=== PATIENT | female | born 1940 | race Caucasian/White ===

== ENCOUNTER 2017-07-05 12:16 | Inpatient (IN) | payer MEDICARE, OTHER ==
[2017-07-05 13:51] LABS: AADO2 Arterial 40.1 mmHg (7.0-24.0); Allen Test ACCEPTAB; Arterial Base Excess -0.1 mmol/L (-3.0-3); Arterial Blood Gas Oxygen Sat 94.3 mmHG (95.0-100.0); Arterial COHb 0.6 % (0.0-3.0); Arterial Fraction of Oxyhgb 93.5 % (93.0-99.0); Arterial HCO3 23.3 mmol/L (22.0-26.0); Arterial MetHb 0.2 % (0.0-1.5); Arterial Total Hemglobin 14.2 g/dl (12.0-18.0); Arterial pCO2 34.5 mmhg (35-45); MODE ROOM AIR; Site Right Radial
[2017-07-05 14:02] LABS: ADD MAN DIFF? NO
[2017-07-05 14:05] LABS: WHITE BLOOD COUNT 17.2 10^3/ul (4.8-10.8)
[2017-07-05 14:05] LABS: ABNORMAL IP MESSAGE 1; BASOPHIL # 0.1 10^3/ul (0.0-0.1); BASOPHILS % 0.3 % (0.0-2.0); EOSINOPHILS # 0.1 10^3/ul (0.0-0.5); EOSINOPHILS % 0.3 % (0.0-7.0); HEMATOCRIT 40.6 % (37.0-47.0); HEMOGLOBIN 13.7 g/dl (12.0-16.0); LYMPHOCYTES # 3.9 10^3/ul (0.8-2.9); LYMPHOCYTES % 22.3 % (15.0-51.0); MEAN CORPUSCULAR HEMOGLOBIN 30.5 pg (29.0-33.0); MEAN CORPUSCULAR HGB CONC 33.7 g/dl (32.0-37.0); MEAN CORPUSCULAR VOLUME 90.4 fl (82.0-101.0); MEAN PLATELET VOLUME 13.3 fl (7.4-10.4); MONOCYTE # 0.6 10^3/ul (0.3-0.9); MONOCYTES % 3.4 % (0.0-11.0); NEUTROPHIL # 12.6 10^3/ul (1.6-7.5); NEUTROPHILS % 73.3 % (39.0-77.0); PLATELET COUNT 174 10^3/UL (140-415); RED BLOOD COUNT 4.49 10^6/ul (4.20-5.40); RED CELL DISTRIBUTION WIDTH 14.3 % (11.5-14.5)
[2017-07-05 14:10] LABS: POSITIVE DIFF @See below
[2017-07-05 14:16] LABS: LACTIC ACID 1.8 mmol/L (0.5-2.0)
[2017-07-05 14:19] LABS: ALANINE AMINOTRANSFERASE 30 IU/L (13-69); ALBUMIN 3.8 g/dl (3.3-4.9); ALBUMIN/GLOBULIN RATIO 0.82; ALKALINE PHOSPHATASE 113 IU/L (42-121); ANION GAP 16 (8-16); ASPARTATE AMINO TRANSFERASE 35 IU/L (15-46); BILIRUBIN,INDIRECT 0.3 mg/dl (0-1.1); BILIRUBIN,TOTAL 0.3 mg/dl (0.2-1.3); BLOOD UREA NITROGEN 20 mg/dl (7-20); CALCIUM 8.7 mg/dl (8.4-10.2); CARBON DIOXIDE 24 mmol/L (21-31); CHLORIDE 95 mmol/L (97-110); CREATININE 0.87 mg/dl (0.44-1.00); MAGNESIUM 1.9 mg/dl (1.7-2.5); PHOSPHORUS 4.3 mg/dl (2.5-4.9); POTASSIUM 4.8 mmol/L (3.5-5.1); SODIUM 130 mmol/L (135-144); TOTAL PROTEIN 8.4 g/dl (6.1-8.1)
[2017-07-05 14:20] LABS: INR 0.93; PROTIME 12.6 Sec (11.9-14.9)
[2017-07-05 14:21] LABS: PARTIAL THROMBOPLASTIN TIME 26.7 Sec (25.0-35.0)
[2017-07-05 14:25] LABS: GLUCOSE 547 mg/dl (70-220)
[2017-07-05 14:30] LABS: TROPONIN-I < 0.012 ng/ml (0.000-0.120)
[2017-07-05] MEDS ORDERED: INSULIN LISPRO 100 UNIT/ML VIAL SC (15:00)
[2017-07-05] MEDS: SOD CHLORIDE 0.9% 1,000 ML IV ×2 (15:07→17:53)
[2017-07-05 16:24] LABS: URINE BLOOD (Dip) POC Negative (NEGATIVE); URINE KETONES (Dip) POC Negative (NEGATIVE); URINE LEUKOCYTE EST (Dip) POC Negative (NEGATIVE); URINE NITRITE (Dip) POC Negative (NEGATIVE); URINE TOTAL PROTEIN POC Negative (NEGATIVE)
[2017-07-05 16:57] LABS: ADD UMIC NO; UR ASCORBIC ACID NEGATIVE (NEGATIVE); UR BILIRUBIN (Dip) NEGATIVE (NEGATIVE); UR BLOOD (Dip) NEGATIVE (NEGATIVE); UR CLARITY CLEAR (CLEAR); UR COLOR COLORLESS (YELLOW); UR GLUCOSE (Dip) 3+ mg/dL (NEGATIVE); UR KETONES (Dip) NEGATIVE (NEGATIVE); UR LEUKOCYTE ESTERASE (Dip) NEGATIVE Leu/ul (NEGATIVE); UR NITRITE (Dip) NEGATIVE (NEGATIVE); UR SPECIFIC GRAVITY (Dip) 1.012 (1.003-1.030); UR TOTAL PROTEIN (Dip) NEGATIVE (NEGATIVE); UR UROBILINOGEN (Dip) NEGATIVE (NEGATIVE)
[2017-07-05 17:28] LABS: LACTIC ACID 3.3 mmol/L (0.5-2.0)
[2017-07-05] MEDS: LEVOFLOXACIN 750MG/D5W (PMX) 150 ML IVPB (17:32)
[2017-07-05] MEDS ORDERED: ALBUTEROL/IPRATROPIUM (NEB) 3 ML AMP HHN (18:00)
[2017-07-05] MEDS ORDERED: GLUCAGON 1 MG INJ IM (18:00)
[2017-07-05] MEDS ORDERED: NACL 0.9% 3 ML SYG IV (18:00)
[2017-07-05] MEDS ORDERED: GLUCOSE GEL 15 GRAM TUBE BUCCAL (18:00)
[2017-07-05] MEDS ORDERED: GLUCOSE GEL 15 GRAM TUBE PO ×2 (18:00)
[2017-07-05] MEDS ORDERED: HYDROmorphONE 0.5 MG/0.5 ML SYG IV (18:00)
[2017-07-05] MEDS ORDERED: HYDROCODONE/APAP (5/325) TAB PO (18:00)
[2017-07-05] MEDS ORDERED: ONDANSETRON 4 MG INJ IV (18:00)
[2017-07-05] MEDS ORDERED: NITROGLYCERIN (SL) 0.4 MG TAB SL (18:00)
[2017-07-05] MEDS ORDERED: MAGNESIUM HYDROXIDE 30ML CUP PO (18:00)
[2017-07-05] MEDS ORDERED: NA PHOSPHATE/BIPHOS 133 ML ENEMA PR (18:00)
[2017-07-05] MEDS ORDERED: DEXTROSE 50% 50 ML SYRINGE IV ×2 (18:00)
[2017-07-05] MEDS ORDERED: LORAZEPAM 2 MG INJ IV (18:00)
[2017-07-05] MEDS: VANCOMYCIN 1 GM (PMX) 250 ML IVPB (19:56)
[2017-07-05] MEDS: INSULIN ASPART [NOVOLOG] 3 ML PEN SC (21:16)
[2017-07-05] MEDS: HEPARIN 5,000 UNIT/0.5 ML VIAL SC (21:50)
[2017-07-05] MEDS: PIPER-TAZO 3.375 GM IV (PMX) 100 ML IVPB (22:29)
[2017-07-06] MEDS: INSULIN ASPART [NOVOLOG] 3 ML PEN SC ×6 (01:00→18:19)
[2017-07-06] MEDS ORDERED: ACCU-CHEK XX (02:00)
[2017-07-06] MEDS: SOD CHLORIDE 0.9% 1,000 ML IV ×2 (03:33→05:12)
[2017-07-06 03:38] LABS: LACTIC ACID 0.9 mmol/L (0.5-2.0)
[2017-07-06] MEDS: PIPER-TAZO 3.375 GM IV (PMX) 100 ML IVPB ×3 (05:11→18:09)
[2017-07-06 06:15] LABS: ADD MAN DIFF? NO
[2017-07-06 06:18] LABS: LACTIC ACID 1.1 mmol/L (0.5-2.0)
[2017-07-06 06:19] LABS: ABNORMAL IP MESSAGE 1; BASOPHIL # 0.1 10^3/ul (0.0-0.1); BASOPHILS % 0.5 % (0.0-2.0); EOSINOPHILS # 0.2 10^3/ul (0.0-0.5); EOSINOPHILS % 2.2 % (0.0-7.0); HEMATOCRIT 39.7 % (37.0-47.0); LYMPHOCYTES # 4.6 10^3/ul (0.8-2.9); LYMPHOCYTES % 46.4 % (15.0-51.0); MEAN CORPUSCULAR HEMOGLOBIN 29.8 pg (29.0-33.0); MEAN CORPUSCULAR HGB CONC 32.7 g/dl (32.0-37.0); MEAN CORPUSCULAR VOLUME 91.1 fl (82.0-101.0); MEAN PLATELET VOLUME 13.5 fl (7.4-10.4); MONOCYTE # 0.6 10^3/ul (0.3-0.9); MONOCYTES % 5.7 % (0.0-11.0); NEUTROPHIL # 4.5 10^3/ul (1.6-7.5); NEUTROPHILS % 45.1 % (39.0-77.0); PLATELET COUNT 169 10^3/UL (140-415); RED BLOOD COUNT 4.36 10^6/ul (4.20-5.40); RED CELL DISTRIBUTION WIDTH 14.5 % (11.5-14.5)
[2017-07-06 06:19] LABS: WHITE BLOOD COUNT 9.9 10^3/ul (4.8-10.8)
[2017-07-06 06:35] LABS: POSITIVE DIFF @See below
[2017-07-06 06:48] LABS: CHOLESTEROL 142 mg/dl (100-200)
[2017-07-06 06:48] LABS: CHOL/HDL RATIO 3.4 RATIO; HDL CHOLESTEROL 41 mg/dl (33-92); LDL CHOLESTEROL,CALCULATED 78 mg/dl; TRIGLYCERIDES 114 mg/dl (0-149)
[2017-07-06 06:52] LABS: ANION GAP 14 (8-16); BLOOD UREA NITROGEN 14 mg/dl (7-20); CALCIUM 8.6 mg/dl (8.4-10.2); CARBON DIOXIDE 26 mmol/L (21-31); CHLORIDE 108 mmol/L (97-110); GLUCOSE 115 mg/dl (70-220); MAGNESIUM 1.9 mg/dl (1.7-2.5); PHOSPHORUS 4.4 mg/dl (2.5-4.9); POTASSIUM 4.5 mmol/L (3.5-5.1); SODIUM 143 mmol/L (135-144)
[2017-07-06] MEDS: HEPARIN 5,000 UNIT/0.5 ML VIAL SC ×2 (08:42→21:38)
[2017-07-06 13:23] LABS: LACTIC ACID 1.4 mmol/L (0.5-2.0)
[2017-07-06] MEDS: SOD CHLORIDE 0.45% 1,000 ML IV (18:10)
[2017-07-06] MEDS: INSULIN GLARGINE [LANtus] 3 ML PEN SC (18:19)
[2017-07-06] MEDS: ACETAMINOPHEN 325 MG TAB PO (18:35)
[2017-07-06] MEDS: DOCUSATE SODIUM 100 MG CAP PO (18:36)
[2017-07-06] MEDS: Insulin NOVOLOG SS MODERATE Algorithm (SS with meals and bedtime) SC (21:48)
[2017-07-07] MEDS: PIPER-TAZO 3.375 GM IV (PMX) 100 ML IVPB ×2 (00:23→05:29)
[2017-07-07] MEDS: ACCUCHECK AT 2AM (Patients on SS coverage) XX (02:11)
[2017-07-07] MEDS: SOD CHLORIDE 0.45% 1,000 ML IV ×2 (04:20→17:27)
[2017-07-07 06:07] LABS: ADD MAN DIFF? NO
[2017-07-07 06:11] LABS: ABNORMAL IP MESSAGE 1; BASOPHIL # 0.1 10^3/ul (0.0-0.1); BASOPHILS % 0.6 % (0.0-2.0); EOSINOPHILS # 0.3 10^3/ul (0.0-0.5); EOSINOPHILS % 3.5 % (0.0-7.0); HEMATOCRIT 40.5 % (37.0-47.0); HEMOGLOBIN 13.5 g/dl (12.0-16.0); LYMPHOCYTES # 4.2 10^3/ul (0.8-2.9); LYMPHOCYTES % 51.3 % (15.0-51.0); MEAN CORPUSCULAR HEMOGLOBIN 29.9 pg (29.0-33.0); MEAN CORPUSCULAR HGB CONC 33.3 g/dl (32.0-37.0); MEAN CORPUSCULAR VOLUME 89.8 fl (82.0-101.0); MEAN PLATELET VOLUME 13.2 fl (7.4-10.4); MONOCYTE # 0.7 10^3/ul (0.3-0.9); MONOCYTES % 8.1 % (0.0-11.0); NEUTROPHILS % 36.4 % (39.0-77.0); PLATELET COUNT 174 10^3/UL (140-415); RED BLOOD COUNT 4.51 10^6/ul (4.20-5.40); RED CELL DISTRIBUTION WIDTH 14.5 % (11.5-14.5)
[2017-07-07 06:11] LABS: WHITE BLOOD COUNT 8.2 10^3/ul (4.8-10.8)
[2017-07-07 06:21] LABS: POSITIVE DIFF @See below
[2017-07-07 06:32] LABS: ANION GAP 12 (8-16); BLOOD UREA NITROGEN 13 mg/dl (7-20); CALCIUM 8.7 mg/dl (8.4-10.2); CARBON DIOXIDE 24 mmol/L (21-31); CHLORIDE 110 mmol/L (97-110); CREATININE 0.85 mg/dl (0.44-1.00); GLUCOSE 155 mg/dl (70-220); POTASSIUM 3.8 mmol/L (3.5-5.1); SODIUM 142 mmol/L (135-144)
[2017-07-07] MEDS: Insulin NOVOLOG SS MODERATE Algorithm (SS with meals and bedtime) SC ×4 (07:35→21:00)
[2017-07-07] MEDS: INSULIN GLARGINE [LANtus] 3 ML PEN SC (08:42)
[2017-07-07] MEDS: HEPARIN 5,000 UNIT/0.5 ML VIAL SC ×2 (08:43→21:04)
[2017-07-07] MEDS: INSULIN ASPART [NOVOLOG] 3 ML PEN SC ×3 (08:43→17:25)
[2017-07-07] MEDS: LEVOFLOXACIN 750 MG TABLET PO (14:29)
[2017-07-07] MEDS: GUAIFENESIN/DM 5ML CUP PO (21:02)
[2017-07-07] MEDS: CARBOXYMETHYLCELLULOSE 0.5% 0.1 ML OPH BOTH EYES (21:02)
[2017-07-08] MEDS: ACCUCHECK AT 2AM (Patients on SS coverage) XX (02:00)
[2017-07-08] MEDS: hydrALAzine 20 MG INJ IV (03:45)
[2017-07-08] MEDS: SOD CHLORIDE 0.45% 1,000 ML IV (06:01)
[2017-07-08] MEDS: LEVOFLOXACIN 750 MG TABLET PO (06:01)
[2017-07-08 06:51] LABS: ADD MAN DIFF? NO; BASOPHIL # 0.1 10^3/ul (0.0-0.1); BASOPHILS % 0.6 % (0.0-2.0); EOSINOPHILS # 0.3 10^3/ul (0.0-0.5); EOSINOPHILS % 2.9 % (0.0-7.0); HEMATOCRIT 40.8 % (37.0-47.0); HEMOGLOBIN 13.4 g/dl (12.0-16.0); LYMPHOCYTES # 4.9 10^3/ul (0.8-2.9); LYMPHOCYTES % 54.7 % (15.0-51.0); MEAN CORPUSCULAR HEMOGLOBIN 29.6 pg (29.0-33.0); MEAN CORPUSCULAR HGB CONC 32.8 g/dl (32.0-37.0); MEAN CORPUSCULAR VOLUME 90.3 fl (82.0-101.0); MEAN PLATELET VOLUME 12.5 fl (7.4-10.4); MONOCYTE # 0.6 10^3/ul (0.3-0.9); NEUTROPHIL # 3.1 10^3/ul (1.6-7.5); NEUTROPHILS % 34.6 % (39.0-77.0); PLATELET COUNT 168 10^3/UL (140-415); RED BLOOD COUNT 4.52 10^6/ul (4.20-5.40); RED CELL DISTRIBUTION WIDTH 14.3 % (11.5-14.5)
[2017-07-08 07:39] LABS: ANION GAP 16 (8-16); BLOOD UREA NITROGEN 18 mg/dl (7-20); CALCIUM 8.9 mg/dl (8.4-10.2); CARBON DIOXIDE 23 mmol/L (21-31); CHLORIDE 107 mmol/L (97-110); CREATININE 0.68 mg/dl (0.44-1.00); GLUCOSE 167 mg/dl (70-220); POTASSIUM 4.1 mmol/L (3.5-5.1); SODIUM 142 mmol/L (135-144)
[2017-07-08] MEDS: CARBOXYMETHYLCELLULOSE 0.5% 0.1 ML OPH BOTH EYES ×2 (08:24→13:51)
[2017-07-08] MEDS: INSULIN GLARGINE [LANtus] 3 ML PEN SC (08:25)
[2017-07-08] MEDS: Insulin NOVOLOG SS MODERATE Algorithm (SS with meals and bedtime) SC ×3 (08:26→17:34)
[2017-07-08] MEDS: INSULIN ASPART [NOVOLOG] 3 ML PEN SC ×3 (08:26→17:33)
[2017-07-08] MEDS: HEPARIN 5,000 UNIT/0.5 ML VIAL SC (08:27)
== END 2017-07-08 17:55 | disposition home health service (06) | DRG 195 ==
LOC: MS3 17:58 → E/R 12:16 → PP2 07-07 21:40
PROVIDERS: Hospitalist
DX: J18.9 Pneumonia, unspecified organism (principal); E11.65 Type 2 diabetes mellitus with hyperglycemia; J84.10 Pulmonary fibrosis, unspecified; E78.00 Pure hypercholesterolemia, unspecified; I10 Essential (primary) hypertension
CPT/HCPCS: 36415; 36600; 71045; 71250; 80048; 80053; 80061; 81003; 82803; 82962; 83036; 83605; 83735; 84100; 84439; 84443; 84484; 85025; 85610; 85730; 87040; 87086; 92610; 93005; 93306; 96372; 96374; 96375; 97116; 97162; 97167; 97535; 99291-25

== ENCOUNTER 2018-05-31 17:25 | Inpatient (IN) | payer MEDICARE, OTHER ==
[2018-05-31] MEDS ORDERED: NITROGLYCERIN (SL) 0.4 MG TAB (18:00)
[2018-05-31] MEDS: SODIUM CHLORIDE 0.9% 1L BAG IV* ×2 (18:01→19:38)
[2018-05-31] MEDS: CEFTRIAXONE 1 GM/50 ML (PMX) 50 ML IVPB (18:01)
[2018-05-31 18:11] LABS: ADD MAN DIFF? NO
[2018-05-31] MEDS: NITROGLYCERIN (SL) 0.4 MG TAB SL (18:33)
[2018-05-31 18:35] LABS: BASOPHIL # 0.1 10^3/ul (0.0-0.1); BASOPHILS % 0.5 % (0.0-2.0); EOSINOPHILS # 0.1 10^3/ul (0.0-0.5); EOSINOPHILS % 0.6 % (0.0-7.0); HEMATOCRIT 42.8 % (37.0-47.0); HEMOGLOBIN 13.9 g/dl (12.0-16.0); LYMPHOCYTES # 3.6 10^3/ul (0.8-2.9); LYMPHOCYTES % 27.8 % (15.0-51.0); MEAN CORPUSCULAR HEMOGLOBIN 30.1 pg (29.0-33.0); MEAN CORPUSCULAR HGB CONC 32.5 g/dl (32.0-37.0); MEAN CORPUSCULAR VOLUME 92.6 fl (82.0-101.0); MEAN PLATELET VOLUME 12.3 fl (7.4-10.4); MONOCYTE # 0.9 10^3/ul (0.3-0.9); MONOCYTES % 6.9 % (0.0-11.0); NEUTROPHIL # 8.3 10^3/ul (1.6-7.5); NEUTROPHILS % 63.9 % (39.0-77.0); PLATELET COUNT 278 10^3/UL (140-415); RED BLOOD COUNT 4.62 10^6/ul (4.20-5.40); RED CELL DISTRIBUTION WIDTH 15.2 % (11.5-14.5)
[2018-05-31] MEDS: AZITHROMYCIN 500MG/NS (PMX) 250 ML IV (18:49)
[2018-05-31 18:57] LABS: ALANINE AMINOTRANSFERASE 35 IU/L (13-69); ALBUMIN 3.7 g/dl (3.3-4.9); ALBUMIN/GLOBULIN RATIO 0.82; ALKALINE PHOSPHATASE 215 IU/L (42-121); ANION GAP 13 (5-13); ASPARTATE AMINO TRANSFERASE 61 IU/L (15-46); BILIRUBIN,INDIRECT 0.4 mg/dl (0-1.1); BILIRUBIN,TOTAL 0.4 mg/dl (0.2-1.3); BLOOD UREA NITROGEN 15 mg/dl (7-20); CALCIUM 9.6 mg/dl (8.4-10.2); CARBON DIOXIDE 25 mmol/L (21-31); CHLORIDE 98 mmol/L (97-110); CREATININE 0.62 mg/dl (0.44-1.00); GLUCOSE 269 mg/dl (70-220); INR 0.98; POTASSIUM 4.3 mmol/L (3.5-5.1); PROTIME 13.1 Sec (11.9-14.9); SODIUM 136 mmol/L (135-144); TOTAL PROTEIN 8.2 g/dl (6.1-8.1)
[2018-05-31 18:58] LABS: PARTIAL THROMBOPLASTIN TIME 35.3 Sec (23.0-35.0)
[2018-05-31 19:08] LABS: TROPONIN-I < 0.012 ng/ml (0.000-0.120)
[2018-05-31 19:31] LABS: AADO2 Arterial 226.2 mmHg (7.0-24.0); Allen Test ACCEPTAB; Arterial Base Excess 1.8 mmol/L (-3.0-3); Arterial Blood Gas Oxygen Sat 96.5 mmHG (95.0-100.0); Arterial COHb 0.4 % (0.0-3.0); Arterial Fraction of Oxyhgb 95.8 % (93.0-99.0); Arterial HCO3 26.1 mmol/L (22.0-26.0); Arterial MetHb 0.3 % (0.0-1.5); Arterial pCO2 39.6 mmhg (35-45); Blood Gas IEPAP 15/5; MODE MASK - BIPAP; Site Right Radial
[2018-05-31] MEDS ORDERED: ACETAMINOPHEN 325 MG TAB PO ×2 (20:00→20:30)
[2018-05-31] MEDS ORDERED: ONDANSETRON 4 MG INJ IV (20:00)
[2018-05-31] MEDS ORDERED: BISACODYL (EC) 5 MG TAB PO (20:30)
[2018-05-31] MEDS ORDERED: DOCUSATE SODIUM 100 MG CAP PO (20:30)
[2018-05-31] MEDS ORDERED: NACL 0.9% 3 ML SYG IV (20:30)
[2018-05-31 20:37] LABS: B-TYPE NATRIURETIC PEPTIDE 385 PG/ML (0-450)
[2018-05-31] MEDS ORDERED: GLUCOSE GEL 15 GRAM TUBE PO ×2 (21:00)
[2018-05-31] MEDS ORDERED: LEVALBUTEROL (NEB) 1.25 MG/0.5 ML AMP HHN (21:00)
[2018-05-31] MEDS ORDERED: DEXTROSE 50% 50 ML SYRINGE IV ×2 (21:00)
[2018-05-31] MEDS ORDERED: GLUCOSE GEL 15 GRAM TUBE BUCCAL (21:00)
[2018-05-31] MEDS ORDERED: GLUCAGON 1 MG INJ IM (21:00)
[2018-05-31 21:24] LABS: HEMOGLOBIN A1C 10.9 % (0-5.9)
[2018-05-31] MEDS: INSULIN ASPART [NOVOLOG] 3 ML PEN SC (21:30)
[2018-05-31] MEDS: IPRATROPIUM (NEB) 0.5 MG/2.5 ML AMP HHN (21:55)
[2018-05-31] MEDS: LEVALBUTEROL (NEB) 1.25 MG/0.5 ML AMP HHN (21:55)
[2018-05-31 23:15] LABS: LACTIC ACID 1.2 mmol/L (0.5-2.0)
[2018-05-31] MEDS: METHYLPREDNISOLONE 125 MG INJ IV (23:28)
[2018-05-31] MEDS: INSULIN GLARGINE [LANTus] (100 UNITS/ML) SYG SC (23:32)
[2018-06-01] MEDS: PIPER-TAZO 3.375 GM IV (PMX) 100 ML IVPB ×4 (00:51→18:29)
[2018-06-01] MEDS: LEVALBUTEROL (NEB) 1.25 MG/0.5 ML AMP HHN ×7 (01:23→23:50)
[2018-06-01] MEDS ORDERED: ACCU-CHEK XX (02:00)
[2018-06-01] MEDS: ACCU-CHEK XX (02:00)
[2018-06-01] MEDS: LEVOFLOXACIN 750MG/D5W (PMX) 150 ML IVPB (02:12)
[2018-06-01 02:22] LABS: AADO2 Arterial 239.2 mmHg (7.0-24.0); Allen Test ACCEPTAB; Arterial Base Excess 1.5 mmol/L (-3.0-3); Arterial Blood Gas Oxygen Sat 93.8 mmHG (95.0-100.0); Arterial COHb 0.5 % (0.0-3.0); Arterial Fraction of Oxyhgb 93.2 % (93.0-99.0); Arterial HCO3 26.1 mmol/L (22.0-26.0); Arterial MetHb 0.1 % (0.0-1.5); Arterial pCO2 41.4 mmhg (35-45); Blood Gas IEPAP 15/5; MODE MASK - BIPAP; Site Right Radial
[2018-06-01] MEDS: LORAZEPAM 2 MG INJ IV ×2 (02:34→08:56)
[2018-06-01] MEDS: FUROSEMIDE 20 MG INJ IV (06:02)
[2018-06-01] MEDS: PANTOPRAZOLE (EC) 40 MG TAB PO (06:02)
[2018-06-01 07:46] LABS: MAGNESIUM 2.1 mg/dl (1.7-2.5)
[2018-06-01 07:46] LABS: CHOL/HDL RATIO 5.4 RATIO; CHOLESTEROL 158 mg/dl (100-200); HDL CHOLESTEROL 29 mg/dl (33-92); LDL CHOLESTEROL,CALCULATED 114 mg/dl; TRIGLYCERIDES 75 mg/dl (0-149)
[2018-06-01] MEDS: INSULIN ASPART [NOVOLOG] 3 ML PEN SC ×6 (07:55→21:44)
[2018-06-01 08:18] LABS: THYROID STIMULATING HORMONE 0.361 MIU/L (0.465-4.680)
[2018-06-01] MEDS: IPRATROPIUM (NEB) 0.5 MG/2.5 ML AMP HHN ×4 (09:50→20:28)
[2018-06-01] MEDS: ENOXAPARIN 40 MG/0.4 ML SYG SC (10:02)
[2018-06-01] MEDS: METHYLPREDNISOLONE 40 MG INJ IV ×3 (11:32→22:05)
[2018-06-01] MEDS ORDERED: INSULIN GLARGINE [LANTus] (100 UNITS/ML) SYG SC (20:00)
[2018-06-01] MEDS: INSULIN GLARGINE [LANTus] (100 UNITS/ML) SYG SC (21:40)
[2018-06-02] MEDS: PIPER-TAZO 3.375 GM IV (PMX) 100 ML IVPB ×4 (00:17→18:32)
[2018-06-02] MEDS: ACCU-CHEK XX (02:00)
[2018-06-02] MEDS: LEVALBUTEROL (NEB) 1.25 MG/0.5 ML AMP HHN ×5 (04:22→20:59)
[2018-06-02] MEDS: METHYLPREDNISOLONE 40 MG INJ IV ×2 (06:54→13:10)
[2018-06-02] MEDS: PANTOPRAZOLE (EC) 40 MG TAB PO (06:54)
[2018-06-02 07:16] LABS: ADD MAN DIFF? NO
[2018-06-02 07:25] LABS: WHITE BLOOD COUNT 15.6 10^3/ul (4.8-10.8)
[2018-06-02 07:25] LABS: BASOPHILS % 0.1 % (0.0-2.0); HEMOGLOBIN 11.4 g/dl (12.0-16.0); LYMPHOCYTES # 2.2 10^3/ul (0.8-2.9); LYMPHOCYTES % 13.9 % (15.0-51.0); MEAN CORPUSCULAR HEMOGLOBIN 29.4 pg (29.0-33.0); MEAN CORPUSCULAR HGB CONC 31.7 g/dl (32.0-37.0); MEAN CORPUSCULAR VOLUME 92.8 fl (82.0-101.0); MEAN PLATELET VOLUME 11.9 fl (7.4-10.4); MONOCYTE # 0.9 10^3/ul (0.3-0.9); MONOCYTES % 5.7 % (0.0-11.0); NEUTROPHIL # 12.5 10^3/ul (1.6-7.5); NEUTROPHILS % 79.9 % (39.0-77.0); PLATELET COUNT 274 10^3/UL (140-415); RED BLOOD COUNT 3.88 10^6/ul (4.20-5.40); RED CELL DISTRIBUTION WIDTH 15.2 % (11.5-14.5)
[2018-06-02 07:52] LABS: ANION GAP 7 (5-13); BLOOD UREA NITROGEN 21 mg/dl (7-20); CALCIUM 8.7 mg/dl (8.4-10.2); CARBON DIOXIDE 29 mmol/L (21-31); CHLORIDE 104 mmol/L (97-110); CREATININE 0.57 mg/dl (0.44-1.00); GLUCOSE 160 mg/dl (70-220); MAGNESIUM 2.2 mg/dl (1.7-2.5); PHOSPHORUS 3.8 mg/dl (2.5-4.9); POTASSIUM 3.9 mmol/L (3.5-5.1); SODIUM 140 mmol/L (135-144)
[2018-06-02] MEDS: INSULIN ASPART [NOVOLOG] 3 ML PEN SC ×4 (07:54→22:02)
[2018-06-02 08:13] LABS: AADO2 Arterial 264.7 mmHg (7.0-24.0); Allen Test ACCEPTAB; Arterial Base Excess 1.4 mmol/L (-3.0-3); Arterial Blood Gas Oxygen Sat 93.8 mmHG (95.0-100.0); Arterial COHb 0.5 % (0.0-3.0); Arterial HCO3 25.4 mmol/L (22.0-26.0); Arterial MetHb 0.3 % (0.0-1.5); Arterial pCO2 38.4 mmhg (35-45); MODE NASAL CANNULA; Site Right Radial
[2018-06-02] MEDS: IPRATROPIUM (NEB) 0.5 MG/2.5 ML AMP HHN ×4 (08:30→20:59)
[2018-06-02] MEDS: ENOXAPARIN 40 MG/0.4 ML SYG SC (08:58)
[2018-06-02] MEDS: GUAIFENESIN/DM 5ML CUP PO (12:02)
[2018-06-02] MEDS: FUROSEMIDE 40 MG INJ IV (17:03)
[2018-06-02] MEDS: INSULIN GLARGINE [LANTus] (100 UNITS/ML) SYG SC (20:14)
[2018-06-02 23:43] LABS: AADO2 Arterial 391.6 mmHg (7.0-24.0); Allen Test ACCEPTAB; Arterial Base Excess 4.5 mmol/L (-3.0-3); Arterial Blood Gas Oxygen Sat 99.2 mmHG (95.0-100.0); Arterial COHb 0.3 % (0.0-3.0); Arterial Fraction of Oxyhgb 98.7 % (93.0-99.0); Arterial HCO3 29.6 mmol/L (22.0-26.0); Arterial MetHb 0.2 % (0.0-1.5); Arterial pCO2 46.1 mmhg (35-45); MODE HFNC; Site Right Radial
[2018-06-03] MEDS: PIPER-TAZO 3.375 GM IV (PMX) 100 ML IVPB ×4 (00:34→17:11)
[2018-06-03] MEDS: METHYLPREDNISOLONE 40 MG INJ IV ×4 (00:34→21:09)
[2018-06-03] MEDS: LEVALBUTEROL (NEB) 1.25 MG/0.5 ML AMP HHN ×6 (01:24→20:05)
[2018-06-03] MEDS: ACCU-CHEK XX ×2 (01:32→23:49)
[2018-06-03] MEDS: PANTOPRAZOLE (EC) 40 MG TAB PO (05:53)
[2018-06-03 06:42] LABS: ADD MAN DIFF? NO
[2018-06-03 06:45] LABS: BASOPHILS % 0.1 % (0.0-2.0); EOSINOPHILS % 0.1 % (0.0-7.0); HEMATOCRIT 38.6 % (37.0-47.0); HEMOGLOBIN 12.1 g/dl (12.0-16.0); LYMPHOCYTES % 22.9 % (15.0-51.0); MEAN CORPUSCULAR HEMOGLOBIN 28.7 pg (29.0-33.0); MEAN CORPUSCULAR HGB CONC 31.3 g/dl (32.0-37.0); MEAN CORPUSCULAR VOLUME 91.7 fl (82.0-101.0); MEAN PLATELET VOLUME 11.4 fl (7.4-10.4); MONOCYTE # 0.7 10^3/ul (0.3-0.9); MONOCYTES % 5.3 % (0.0-11.0); NEUTROPHIL # 9.2 10^3/ul (1.6-7.5); NEUTROPHILS % 71.1 % (39.0-77.0); PLATELET COUNT 286 10^3/UL (140-415); RED BLOOD COUNT 4.21 10^6/ul (4.20-5.40); RED CELL DISTRIBUTION WIDTH 15.2 % (11.5-14.5)
[2018-06-03 07:10] LABS: ALANINE AMINOTRANSFERASE 32 IU/L (13-69); ALBUMIN 2.9 g/dl (3.3-4.9); ALBUMIN/GLOBULIN RATIO 0.76; ALKALINE PHOSPHATASE 125 IU/L (42-121); ANION GAP 5 (5-13); ASPARTATE AMINO TRANSFERASE 33 IU/L (15-46); BILIRUBIN,INDIRECT 0.2 mg/dl (0-1.1); BILIRUBIN,TOTAL 0.2 mg/dl (0.2-1.3); BLOOD UREA NITROGEN 18 mg/dl (7-20); CARBON DIOXIDE 33 mmol/L (21-31); CHLORIDE 102 mmol/L (97-110); CREATININE 0.56 mg/dl (0.44-1.00); GLUCOSE 194 mg/dl (70-220); POTASSIUM 3.4 mmol/L (3.5-5.1); SODIUM 140 mmol/L (135-144); TOTAL PROTEIN 6.7 g/dl (6.1-8.1)
[2018-06-03] MEDS: ENOXAPARIN 40 MG/0.4 ML SYG SC (08:12)
[2018-06-03] MEDS: FUROSEMIDE 40 MG INJ IV (08:18)
[2018-06-03] MEDS: IPRATROPIUM (NEB) 0.5 MG/2.5 ML AMP HHN ×4 (08:39→20:05)
[2018-06-03] MEDS: INSULIN ASPART [NOVOLOG] 3 ML PEN SC ×6 (09:07→21:22)
[2018-06-03] MEDS: POTASSIUM CHLORIDE 100 ML IVPB ×3 (10:01→15:39)
[2018-06-03] MEDS ORDERED: INSULIN ASP PROT/ASPART (70/30) PEN SC (14:00)
[2018-06-03] MEDS: GUAIFENESIN/DM 5ML CUP PO (17:10)
[2018-06-03] MEDS: POTASSIUM CHLORIDE 20 MEQ POWDER FOR ORAL SOLN PO (17:17)
[2018-06-03] MEDS: INSULIN GLARGINE [LANTus] (100 UNITS/ML) SYG SC (21:12)
[2018-06-04] MEDS: LEVALBUTEROL (NEB) 1.25 MG/0.5 ML AMP HHN ×7 (00:25→21:36)
[2018-06-04] MEDS: PIPER-TAZO 3.375 GM IV (PMX) 100 ML IVPB ×5 (00:31→23:19)
[2018-06-04] MEDS: ENALAPRILAT 1.25 MG INJ IV (01:32)
[2018-06-04] MEDS: ACCU-CHEK XX (01:43)
[2018-06-04] MEDS: PANTOPRAZOLE (EC) 40 MG TAB PO (05:52)
[2018-06-04] MEDS: METHYLPREDNISOLONE 40 MG INJ IV ×3 (05:52→21:34)
[2018-06-04 08:13] LABS: ADD MAN DIFF? NO
[2018-06-04 08:28] LABS: WHITE BLOOD COUNT 10.9 10^3/ul (4.8-10.8)
[2018-06-04 08:28] LABS: BASOPHILS % 0.1 % (0.0-2.0); HEMATOCRIT 39.2 % (37.0-47.0); HEMOGLOBIN 12.5 g/dl (12.0-16.0); LYMPHOCYTES # 2.5 10^3/ul (0.8-2.9); LYMPHOCYTES % 22.5 % (15.0-51.0); MEAN CORPUSCULAR HEMOGLOBIN 29.7 pg (29.0-33.0); MEAN CORPUSCULAR HGB CONC 31.9 g/dl (32.0-37.0); MEAN CORPUSCULAR VOLUME 93.1 fl (82.0-101.0); MONOCYTE # 0.6 10^3/ul (0.3-0.9); MONOCYTES % 5.3 % (0.0-11.0); NEUTROPHIL # 7.8 10^3/ul (1.6-7.5); NEUTROPHILS % 71.6 % (39.0-77.0); PLATELET COUNT 280 10^3/UL (140-415); RED BLOOD COUNT 4.21 10^6/ul (4.20-5.40); RED CELL DISTRIBUTION WIDTH 14.6 % (11.5-14.5)
[2018-06-04] MEDS: INSULIN ASPART [NOVOLOG] 3 ML PEN SC ×7 (08:33→20:51)
[2018-06-04] MEDS: ENOXAPARIN 40 MG/0.4 ML SYG SC (08:35)
[2018-06-04] MEDS: FUROSEMIDE 40 MG INJ IV (08:36)
[2018-06-04 08:50] LABS: ALANINE AMINOTRANSFERASE 29 IU/L (13-69); ALBUMIN/GLOBULIN RATIO 0.85; ALKALINE PHOSPHATASE 112 IU/L (42-121); ANION GAP 8 (5-13); ASPARTATE AMINO TRANSFERASE 36 IU/L (15-46); BILIRUBIN,INDIRECT 0.4 mg/dl (0-1.1); BILIRUBIN,TOTAL 0.4 mg/dl (0.2-1.3); BLOOD UREA NITROGEN 23 mg/dl (7-20); CALCIUM 8.8 mg/dl (8.4-10.2); CARBON DIOXIDE 31 mmol/L (21-31); CHLORIDE 98 mmol/L (97-110); CREATININE 0.53 mg/dl (0.44-1.00); GLUCOSE 223 mg/dl (70-220); POTASSIUM 3.9 mmol/L (3.5-5.1); SODIUM 137 mmol/L (135-144); TOTAL PROTEIN 6.5 g/dl (6.1-8.1)
[2018-06-04] MEDS: IPRATROPIUM (NEB) 0.5 MG/2.5 ML AMP HHN ×5 (09:51→21:36)
[2018-06-04] MEDS: BACLOFEN 10 MG TAB PO (15:07)
[2018-06-04] MEDS: INSULIN GLARGINE [LANTus] (100 UNITS/ML) SYG SC (20:52)
[2018-06-04] MEDS: GUAIFENESIN/DM 5ML CUP PO (22:41)
[2018-06-05] MEDS: LEVALBUTEROL (NEB) 1.25 MG/0.5 ML AMP HHN ×7 (00:17→21:19)
[2018-06-05] MEDS: ACCU-CHEK XX (02:24)
[2018-06-05] MEDS: ENALAPRILAT 1.25 MG INJ IV (04:32)
[2018-06-05] MEDS: PIPER-TAZO 3.375 GM IV (PMX) 100 ML IVPB ×3 (05:03→17:57)
[2018-06-05] MEDS: PANTOPRAZOLE (EC) 40 MG TAB PO (05:03)
[2018-06-05] MEDS: METHYLPREDNISOLONE 40 MG INJ IV ×3 (05:05→21:04)
[2018-06-05] MEDS: hydrALAzine 20 MG INJ IV (07:02)
[2018-06-05 07:12] LABS: ADD MAN DIFF? NO
[2018-06-05 07:19] LABS: BASOPHILS % 0.1 % (0.0-2.0); HEMATOCRIT 39.4 % (37.0-47.0); HEMOGLOBIN 12.5 g/dl (12.0-16.0); LYMPHOCYTES % 19.7 % (15.0-51.0); MEAN CORPUSCULAR HEMOGLOBIN 29.2 pg (29.0-33.0); MEAN CORPUSCULAR HGB CONC 31.7 g/dl (32.0-37.0); MEAN CORPUSCULAR VOLUME 92.1 fl (82.0-101.0); MEAN PLATELET VOLUME 11.4 fl (7.4-10.4); MONOCYTE # 0.4 10^3/ul (0.3-0.9); MONOCYTES % 4.1 % (0.0-11.0); NEUTROPHIL # 7.7 10^3/ul (1.6-7.5); NEUTROPHILS % 75.7 % (39.0-77.0); PLATELET COUNT 298 10^3/UL (140-415); RED BLOOD COUNT 4.28 10^6/ul (4.20-5.40); RED CELL DISTRIBUTION WIDTH 14.4 % (11.5-14.5)
[2018-06-05 07:19] LABS: WHITE BLOOD COUNT 10.2 10^3/ul (4.8-10.8)
[2018-06-05 07:31] LABS: ALANINE AMINOTRANSFERASE 38 IU/L (13-69); ALBUMIN 2.8 g/dl (3.3-4.9); ALBUMIN/GLOBULIN RATIO 0.77; ALKALINE PHOSPHATASE 105 IU/L (42-121); ANION GAP 5 (5-13); ASPARTATE AMINO TRANSFERASE 34 IU/L (15-46); BILIRUBIN,INDIRECT 0.4 mg/dl (0-1.1); BILIRUBIN,TOTAL 0.4 mg/dl (0.2-1.3); BLOOD UREA NITROGEN 26 mg/dl (7-20); CARBON DIOXIDE 31 mmol/L (21-31); CHLORIDE 100 mmol/L (97-110); CREATININE 0.48 mg/dl (0.44-1.00); GLUCOSE 219 mg/dl (70-220); POTASSIUM 3.9 mmol/L (3.5-5.1); SODIUM 136 mmol/L (135-144); TOTAL PROTEIN 6.4 g/dl (6.1-8.1)
[2018-06-05] MEDS: INSULIN ASPART [NOVOLOG] 3 ML PEN SC ×7 (07:36→21:00)
[2018-06-05] MEDS: FUROSEMIDE 40 MG INJ IV (08:17)
[2018-06-05] MEDS: ENOXAPARIN 40 MG/0.4 ML SYG SC (08:18)
[2018-06-05] MEDS: IPRATROPIUM (NEB) 0.5 MG/2.5 ML AMP HHN ×4 (08:58→21:19)
[2018-06-05] MEDS: BACLOFEN 10 MG TAB PO (10:11)
[2018-06-05] MEDS: NPH, HUMAN INSULIN ISOPHANE 3ML VIAL SC (21:14)
[2018-06-05] MEDS: INSULIN GLARGINE [LANTus] (100 UNITS/ML) SYG SC (21:14)
[2018-06-06] MEDS: PIPER-TAZO 3.375 GM IV (PMX) 100 ML IVPB ×5 (00:25→23:06)
[2018-06-06] MEDS: LEVALBUTEROL (NEB) 1.25 MG/0.5 ML AMP HHN ×6 (00:54→21:27)
[2018-06-06] MEDS: ACCU-CHEK XX (02:00)
[2018-06-06] MEDS: hydrALAzine 20 MG INJ IV (03:59)
[2018-06-06] MEDS: METHYLPREDNISOLONE 40 MG INJ IV ×3 (06:10→22:03)
[2018-06-06] MEDS: PANTOPRAZOLE (EC) 40 MG TAB PO (06:14)
[2018-06-06] MEDS: NPH, HUMAN INSULIN ISOPHANE 3ML VIAL SC ×3 (07:01→22:15)
[2018-06-06 07:07] LABS: ADD MAN DIFF? NO
[2018-06-06 07:12] LABS: WHITE BLOOD COUNT 11.9 10^3/ul (4.8-10.8)
[2018-06-06 07:12] LABS: BASOPHILS % 0.1 % (0.0-2.0); HEMATOCRIT 43.1 % (37.0-47.0); HEMOGLOBIN 13.9 g/dl (12.0-16.0); LYMPHOCYTES # 3.1 10^3/ul (0.8-2.9); MEAN CORPUSCULAR HEMOGLOBIN 29.7 pg (29.0-33.0); MEAN CORPUSCULAR HGB CONC 32.3 g/dl (32.0-37.0); MEAN CORPUSCULAR VOLUME 92.1 fl (82.0-101.0); MEAN PLATELET VOLUME 11.9 fl (7.4-10.4); MONOCYTE # 0.6 10^3/ul (0.3-0.9); NEUTROPHIL # 8.1 10^3/ul (1.6-7.5); NEUTROPHILS % 68.4 % (39.0-77.0); PLATELET COUNT 363 10^3/UL (140-415); RED BLOOD COUNT 4.68 10^6/ul (4.20-5.40); RED CELL DISTRIBUTION WIDTH 14.6 % (11.5-14.5)
[2018-06-06] MEDS: INSULIN ASPART [NOVOLOG] 3 ML PEN SC ×7 (07:29→22:15)
[2018-06-06 07:43] LABS: ALANINE AMINOTRANSFERASE 40 IU/L (13-69); ALBUMIN 2.9 g/dl (3.3-4.9); ALBUMIN/GLOBULIN RATIO 0.76; ALKALINE PHOSPHATASE 101 IU/L (42-121); ANION GAP 5 (5-13); ASPARTATE AMINO TRANSFERASE 28 IU/L (15-46); BILIRUBIN,INDIRECT 0.3 mg/dl (0-1.1); BILIRUBIN,TOTAL 0.3 mg/dl (0.2-1.3); BLOOD UREA NITROGEN 31 mg/dl (7-20); CALCIUM 9.4 mg/dl (8.4-10.2); CARBON DIOXIDE 35 mmol/L (21-31); CHLORIDE 99 mmol/L (97-110); CREATININE 0.61 mg/dl (0.44-1.00); GLUCOSE 207 mg/dl (70-220); SODIUM 139 mmol/L (135-144); TOTAL PROTEIN 6.7 g/dl (6.1-8.1)
[2018-06-06] MEDS: ENOXAPARIN 40 MG/0.4 ML SYG SC (08:26)
[2018-06-06] MEDS: BACLOFEN 10 MG TAB PO ×2 (08:27→11:10)
[2018-06-06] MEDS: FUROSEMIDE 40 MG INJ IV (08:28)
[2018-06-06] MEDS: IPRATROPIUM (NEB) 0.5 MG/2.5 ML AMP HHN ×4 (09:04→21:27)
[2018-06-06] MEDS: INSULIN GLARGINE [LANTus] (100 UNITS/ML) SYG SC (22:15)
[2018-06-07] MEDS: ACCU-CHEK XX (02:00)
[2018-06-07] MEDS: LEVALBUTEROL (NEB) 1.25 MG/0.5 ML AMP HHN ×7 (02:00→23:59)
[2018-06-07] MEDS: PANTOPRAZOLE (EC) 40 MG TAB PO (05:30)
[2018-06-07] MEDS: METHYLPREDNISOLONE 40 MG INJ IV ×3 (05:30→21:24)
[2018-06-07] MEDS: PIPER-TAZO 3.375 GM IV (PMX) 100 ML IVPB (05:30)
[2018-06-07] MEDS: NPH, HUMAN INSULIN ISOPHANE 3ML VIAL SC ×3 (05:55→21:31)
[2018-06-07 07:26] LABS: ADD MAN DIFF? NO
[2018-06-07 07:30] LABS: BASOPHILS % 0.1 % (0.0-2.0); HEMATOCRIT 40.8 % (37.0-47.0); LYMPHOCYTES # 2.3 10^3/ul (0.8-2.9); LYMPHOCYTES % 21.5 % (15.0-51.0); MEAN CORPUSCULAR HEMOGLOBIN 29.1 pg (29.0-33.0); MEAN CORPUSCULAR HGB CONC 31.9 g/dl (32.0-37.0); MEAN CORPUSCULAR VOLUME 91.3 fl (82.0-101.0); MEAN PLATELET VOLUME 11.7 fl (7.4-10.4); MONOCYTE # 0.5 10^3/ul (0.3-0.9); MONOCYTES % 4.5 % (0.0-11.0); NEUTROPHILS % 73.5 % (39.0-77.0); PLATELET COUNT 335 10^3/UL (140-415); RED BLOOD COUNT 4.47 10^6/ul (4.20-5.40); RED CELL DISTRIBUTION WIDTH 14.7 % (11.5-14.5)
[2018-06-07 07:30] LABS: WHITE BLOOD COUNT 10.8 10^3/ul (4.8-10.8)
[2018-06-07] MEDS: INSULIN ASPART [NOVOLOG] 3 ML PEN SC ×7 (07:59→20:41)
[2018-06-07] MEDS: FUROSEMIDE 40 MG INJ IV (08:07)
[2018-06-07] MEDS: ENOXAPARIN 40 MG/0.4 ML SYG SC (08:10)
[2018-06-07] MEDS: GUAIFENESIN/DM 5ML CUP PO (09:32)
[2018-06-07] MEDS: IPRATROPIUM (NEB) 0.5 MG/2.5 ML AMP HHN ×4 (09:38→20:20)
[2018-06-07] MEDS: BACLOFEN 10 MG TAB PO (15:03)
[2018-06-07] MEDS: INSULIN GLARGINE [LANTus] (100 UNITS/ML) SYG SC (20:46)
[2018-06-08] MEDS: ACCU-CHEK XX (01:11)
[2018-06-08] MEDS: LEVALBUTEROL (NEB) 1.25 MG/0.5 ML AMP HHN ×5 (04:03→21:11)
[2018-06-08] MEDS: PANTOPRAZOLE (EC) 40 MG TAB PO (05:21)
[2018-06-08] MEDS: METHYLPREDNISOLONE 40 MG INJ IV ×3 (05:21→21:47)
[2018-06-08] MEDS: NPH, HUMAN INSULIN ISOPHANE 3ML VIAL SC ×2 (05:39→21:47)
[2018-06-08] MEDS: FUROSEMIDE 40 MG INJ IV (08:13)
[2018-06-08] MEDS: ENALAPRILAT 1.25 MG INJ IV (08:14)
[2018-06-08] MEDS: INSULIN ASPART [NOVOLOG] 3 ML PEN SC ×7 (08:19→20:58)
[2018-06-08] MEDS: ENOXAPARIN 40 MG/0.4 ML SYG SC (08:19)
[2018-06-08] MEDS: IPRATROPIUM (NEB) 0.5 MG/2.5 ML AMP HHN ×4 (09:35→21:11)
[2018-06-08] MEDS: BACLOFEN 10 MG TAB PO ×2 (10:15→18:37)
[2018-06-08] MEDS: INSULIN GLARGINE [LANTus] (100 UNITS/ML) SYG SC (19:59)
[2018-06-09] MEDS: LEVALBUTEROL (NEB) 1.25 MG/0.5 ML AMP HHN ×5 (00:56→17:23)
[2018-06-09] MEDS: ACCU-CHEK XX (02:00)
[2018-06-09] MEDS: PANTOPRAZOLE (EC) 40 MG TAB PO (06:01)
[2018-06-09] MEDS: METHYLPREDNISOLONE 40 MG INJ IV (06:02)
[2018-06-09] MEDS: NPH, HUMAN INSULIN ISOPHANE 3ML VIAL SC (06:46)
[2018-06-09] MEDS: INSULIN ASPART [NOVOLOG] 3 ML PEN SC ×5 (08:10→17:46)
[2018-06-09] MEDS: FUROSEMIDE 40 MG INJ IV (08:42)
[2018-06-09] MEDS: ENOXAPARIN 40 MG/0.4 ML SYG SC (08:48)
[2018-06-09] MEDS: IPRATROPIUM (NEB) 0.5 MG/2.5 ML AMP HHN ×3 (09:33→17:23)
[2018-06-09] MEDS: BACLOFEN 10 MG TAB PO (11:53)
[2018-06-09] MEDS: GUAIFENESIN/DM 5ML CUP PO (16:41)
[2018-06-09] MEDS ORDERED: METHYLPREDNISOLONE 40 MG INJ IV (21:00)
[2018-06-09] MEDS ORDERED: NPH, HUMAN INSULIN ISOPHANE 3ML VIAL SC (22:00)
== END 2018-06-09 17:50 | DRG 189 ==
LOC: E/R 17:25 → TEL 19:47
DX: J96.21 Acute and chronic respiratory failure with hypoxia (principal); J18.9 Pneumonia, unspecified organism; J84.112 Idiopathic pulmonary fibrosis; I10 Essential (primary) hypertension; I51.7 Cardiomegaly; E11.9 Type 2 diabetes mellitus without complications; Z66 Do not resuscitate; E11.65 Type 2 diabetes mellitus with hyperglycemia; Z79.4 Long term (current) use of insulin; T38.0X5A Adverse effect of glucocorticoids and synthetic analogues, initial encounter
CPT/HCPCS: 36415; 36600; 71045; 71250; 76775; 80048; 80053; 80061; 82803; 82962; 83036; 83605; 83735; 83880; 84100; 84443; 84484; 85025; 85610; 85730; 87040-91; 87275; 87276; 87279; 87280; 93005; 93306; 94640; 94660; 94664; 96374; 96375; 99285-25

== ENCOUNTER 2018-07-19 22:08 | Inpatient (IN) | payer MEDICARE, OTHER ==
[2018-07-19 22:50] LABS: ADD MAN DIFF? NO
[2018-07-19 22:53] LABS: BASOPHILS % 0.2 % (0.0-2.0); EOSINOPHILS # 0.3 10^3/ul (0.0-0.5); EOSINOPHILS % 1.8 % (0.0-7.0); HEMATOCRIT 41.4 % (37.0-47.0); HEMOGLOBIN 12.7 g/dl (12.0-16.0); LYMPHOCYTES # 3.4 10^3/ul (0.8-2.9); LYMPHOCYTES % 20.3 % (15.0-51.0); MEAN CORPUSCULAR HEMOGLOBIN 29.1 pg (29.0-33.0); MEAN CORPUSCULAR HGB CONC 30.7 g/dl (32.0-37.0); MEAN CORPUSCULAR VOLUME 94.7 fl (82.0-101.0); MONOCYTE # 0.7 10^3/ul (0.3-0.9); MONOCYTES % 4.2 % (0.0-11.0); NEUTROPHIL # 12.1 10^3/ul (1.6-7.5); NUCLEATED RED BLOOD CELLS% 0.1 /100WBC (0.0-0.0); PLATELET COUNT 222 10^3/UL (140-415); RED BLOOD COUNT 4.37 10^6/ul (4.20-5.40); RED CELL DISTRIBUTION WIDTH 15.6 % (11.5-14.5)
[2018-07-19 22:53] LABS: WHITE BLOOD COUNT 16.6 10^3/ul (4.8-10.8)
[2018-07-19 23:11] LABS: ALANINE AMINOTRANSFERASE 51 IU/L (13-69); ALBUMIN 3.3 g/dl (3.3-4.9); ALBUMIN/GLOBULIN RATIO 0.84; ALKALINE PHOSPHATASE 161 IU/L (42-121); ANION GAP 5 (5-13); ASPARTATE AMINO TRANSFERASE 60 IU/L (15-46); BILIRUBIN,INDIRECT 0.4 mg/dl (0-1.1); BILIRUBIN,TOTAL 0.4 mg/dl (0.2-1.3); BLOOD UREA NITROGEN 26 mg/dl (7-20); CARBON DIOXIDE 36 mmol/L (21-31); CHLORIDE 96 mmol/L (97-110); CREATININE 0.52 mg/dl (0.44-1.00); GLUCOSE 350 mg/dl (70-220); LIPASE 84 U/L (23-300); POTASSIUM 3.9 mmol/L (3.5-5.1); SODIUM 137 mmol/L (135-144); TOTAL PROTEIN 7.2 g/dl (6.1-8.1)
[2018-07-19] MEDS: FUROSEMIDE 40 MG INJ IV (23:16)
[2018-07-19] MEDS: ASPIRIN 81 MG TAB PO (23:16)
[2018-07-19 23:18] LABS: ADD UMIC YES; UR ASCORBIC ACID 40 mg/dL (NEGATIVE); UR BILIRUBIN (Dip) NEGATIVE (NEGATIVE); UR BLOOD (Dip) NEGATIVE (NEGATIVE); UR CLARITY SLIGHTLY CLOUDY (CLEAR); UR COLOR YELLOW (YELLOW); UR GLUCOSE (Dip) 3+ mg/dL (NEGATIVE); UR KETONES (Dip) 1+ mg/dL (NEGATIVE); UR LEUKOCYTE ESTERASE (Dip) 1+ Leu/ul (NEGATIVE); UR MUCUS FEW /HPF (NONE SEEN); UR NITRITE (Dip) NEGATIVE (NEGATIVE); UR RBC 4 /HPF (0-5); UR SPECIFIC GRAVITY (Dip) 1.021 (1.003-1.030); UR SQUAMOUS EPITHELIAL CELL FEW /HPF (FEW); UR TOTAL PROTEIN (Dip) 1+ mg/dl (NEGATIVE); UR UROBILINOGEN (Dip) NEGATIVE (NEGATIVE); UR WBC 12 /HPF (0-5)
[2018-07-19 23:23] LABS: B-TYPE NATRIURETIC PEPTIDE 3060 PG/ML (0-450); TROPONIN-I 0.079 ng/ml (0.000-0.120)
[2018-07-19] MEDS: NITROGLYCERIN 2% 1 GM OINT PKT TD (23:42)
[2018-07-19 23:43] LABS: AADO2 Arterial 158.5 mmHg (7.0-24.0); Arterial Base Excess 5.1 mmol/L (-3.0-3); Arterial Blood Gas Oxygen Sat 94.7 mmHG (95.0-100.0); Arterial COHb 0.2 % (0.0-3.0); Arterial Fraction of Oxyhgb 94.3 % (93.0-99.0); Arterial HCO3 30.5 mmol/L (22.0-26.0); Arterial MetHb 0.2 % (0.0-1.5); Arterial pCO2 48.1 mmhg (35-45); Blood Gas IEPAP 18/5; MODE MASK - BIPAP; Site Right Brachial
[2018-07-19] MEDS: morphine 4 MG/ML VIAL IV (23:43)
[2018-07-19] MEDS: ONDANSETRON 4 MG INJ IV (23:43)
[2018-07-20] MEDS: DILTIAZEM 25 MG INJ IV (00:15)
[2018-07-20] MEDS: SOD CHLORIDE 0.9% 250 ML IV (00:26)
[2018-07-20] MEDS: DILTIAZEM-D5W 125MG/125ML DRIP 125 ML IV ×2 (01:13→08:56)
[2018-07-20] MEDS ORDERED: DEXTROSE 50% 50 ML SYRINGE IV ×2 (02:30)
[2018-07-20] MEDS ORDERED: ONDANSETRON 4 MG INJ IV (02:30)
[2018-07-20] MEDS ORDERED: HYDROCODONE/APAP (5/325) TAB PO (02:30)
[2018-07-20] MEDS ORDERED: GLUCAGON 1 MG INJ IM (02:30)
[2018-07-20] MEDS ORDERED: GLUCOSE GEL 15 GRAM TUBE PO ×2 (02:30)
[2018-07-20] MEDS ORDERED: ACETAMINOPHEN 325 MG TAB PO (02:30)
[2018-07-20] MEDS ORDERED: DOCUSATE SODIUM 100 MG CAP PO (02:30)
[2018-07-20] MEDS ORDERED: morphine 2 MG INJ IV (02:30)
[2018-07-20] MEDS ORDERED: GLUCOSE GEL 15 GRAM TUBE BUCCAL (02:30)
[2018-07-20] MEDS ORDERED: NITROGLYCERIN (SL) 0.4 MG TAB SL (02:30)
[2018-07-20] MEDS: LORAZEPAM 2 MG INJ IV (03:13)
[2018-07-20] MEDS: PHENYLephrine 20MG IN 250 ML 250 ML IV (03:15)
[2018-07-20 03:17] LABS: FREE T4 (FREE THYROXINE) 1.56 ng/dl (0.78-2.44)
[2018-07-20] MEDS: DIGOXIN 500 MCG INJ IV ×2 (03:36→03:43)
[2018-07-20] MEDS ORDERED: INSULIN ASPART [NOVOLOG] 3 ML PEN SC (05:00)
[2018-07-20] MEDS: INSULIN ASPART [NOVOLOG] 3 ML PEN SC ×5 (05:01→20:26)
[2018-07-20] MEDS: PANTOPRAZOLE 40 MG INJ IV (05:22)
[2018-07-20 06:43] LABS: ADD MAN DIFF? NO
[2018-07-20 06:51] LABS: BASOPHIL # 0.1 10^3/ul (0.0-0.1); BASOPHILS % 0.4 % (0.0-2.0); EOSINOPHILS # 0.1 10^3/ul (0.0-0.5); EOSINOPHILS % 0.4 % (0.0-7.0); HEMATOCRIT 39.6 % (37.0-47.0); LYMPHOCYTES # 1.9 10^3/ul (0.8-2.9); LYMPHOCYTES % 14.2 % (15.0-51.0); MEAN CORPUSCULAR HEMOGLOBIN 28.8 pg (29.0-33.0); MEAN CORPUSCULAR HGB CONC 30.3 g/dl (32.0-37.0); MEAN CORPUSCULAR VOLUME 95.2 fl (82.0-101.0); MEAN PLATELET VOLUME 12.5 fl (7.4-10.4); MONOCYTE # 0.7 10^3/ul (0.3-0.9); MONOCYTES % 5.5 % (0.0-11.0); NEUTROPHIL # 10.6 10^3/ul (1.6-7.5); NEUTROPHILS % 78.9 % (39.0-77.0); PLATELET COUNT 240 10^3/UL (140-415); RED BLOOD COUNT 4.16 10^6/ul (4.20-5.40)
[2018-07-20 06:51] LABS: WHITE BLOOD COUNT 13.5 10^3/ul (4.8-10.8)
[2018-07-20 07:18] LABS: ANION GAP 6 (5-13); BLOOD UREA NITROGEN 28 mg/dl (7-20); CALCIUM 8.4 mg/dl (8.4-10.2); CARBON DIOXIDE 35 mmol/L (21-31); CHLORIDE 95 mmol/L (97-110); CREATININE 0.64 mg/dl (0.44-1.00); MAGNESIUM 1.7 mg/dl (1.7-2.5); PHOSPHORUS 4.6 mg/dl (2.5-4.9); POTASSIUM 4.1 mmol/L (3.5-5.1); SODIUM 136 mmol/L (135-144)
[2018-07-20 07:30] LABS: GLUCOSE 422 mg/dl (70-220)
[2018-07-20] MEDS: ASPIRIN (EC) 81 MG TAB PO (08:54)
[2018-07-20] MEDS: ENOXAPARIN 40 MG/0.4 ML SYG SC (08:55)
[2018-07-20] MEDS ORDERED: SOD CHLORIDE 0.9% 500 ML IV (09:00)
[2018-07-20] MEDS ORDERED: NON-FORMULARY/PATIENT OWN MED (Omeprazole* 40 MG) PO (09:00)
[2018-07-20] MEDS: CEFTRIAXONE 1 GM/50 ML (PMX) 50 ML IVPB (16:40)
[2018-07-20] MEDS: INSULIN GLARGINE [LANTus] (100 UNITS/ML) SYG SC (17:18)
[2018-07-20] MEDS ORDERED: INSULIN GLARGINE [LANTus] (100 UNITS/ML) SYG SC (20:00)
[2018-07-20] MEDS ORDERED: NON-FORMULARY/PATIENT OWN MED ([Insulin Glargine] 18 UNITS) SC (20:00)
[2018-07-21] MEDS: INSULIN ASPART [NOVOLOG] 3 ML PEN SC ×6 (00:55→21:00)
[2018-07-21 05:37] LABS: ADD MAN DIFF? NO
[2018-07-21 05:46] LABS: WHITE BLOOD COUNT 13.9 10^3/ul (4.8-10.8)
[2018-07-21 05:46] LABS: BASOPHIL # 0.1 10^3/ul (0.0-0.1); BASOPHILS % 0.4 % (0.0-2.0); EOSINOPHILS # 0.9 10^3/ul (0.0-0.5); EOSINOPHILS % 6.2 % (0.0-7.0); HEMATOCRIT 38.5 % (37.0-47.0); HEMOGLOBIN 11.8 g/dl (12.0-16.0); LYMPHOCYTES # 2.9 10^3/ul (0.8-2.9); LYMPHOCYTES % 20.5 % (15.0-51.0); MEAN CORPUSCULAR HEMOGLOBIN 29.1 pg (29.0-33.0); MEAN CORPUSCULAR HGB CONC 30.6 g/dl (32.0-37.0); MEAN CORPUSCULAR VOLUME 94.8 fl (82.0-101.0); MEAN PLATELET VOLUME 12.6 fl (7.4-10.4); MONOCYTE # 0.7 10^3/ul (0.3-0.9); MONOCYTES % 5.3 % (0.0-11.0); NEUTROPHIL # 9.3 10^3/ul (1.6-7.5); NEUTROPHILS % 67.2 % (39.0-77.0); PLATELET COUNT 218 10^3/UL (140-415); RED BLOOD COUNT 4.06 10^6/ul (4.20-5.40)
[2018-07-21 06:07] LABS: BLOOD UREA NITROGEN 17 mg/dl (7-20); CALCIUM 8.7 mg/dl (8.4-10.2); CHLORIDE 97 mmol/L (97-110); CREATININE 0.45 mg/dl (0.44-1.00); GLUCOSE 102 mg/dl (70-220); MAGNESIUM 1.7 mg/dl (1.7-2.5); PHOSPHORUS 3.7 mg/dl (2.5-4.9); POTASSIUM 3.6 mmol/L (3.5-5.1); SODIUM 140 mmol/L (135-144)
[2018-07-21 06:17] LABS: CHOL/HDL RATIO 2.7 RATIO; HDL CHOLESTEROL 46 mg/dl (33-92); LDL CHOLESTEROL,CALCULATED 65 mg/dl; TRIGLYCERIDES 84 mg/dl (0-149)
[2018-07-21 06:17] LABS: CHOLESTEROL 128 mg/dl (100-200)
[2018-07-21 06:20] LABS: ANION GAP 2 (5-13); CARBON DIOXIDE 41 mmol/L (21-31)
[2018-07-21] MEDS: PANTOPRAZOLE (EC) 40 MG TAB PO (07:01)
[2018-07-21] MEDS: ASPIRIN (EC) 81 MG TAB PO (09:09)
[2018-07-21] MEDS: ENOXAPARIN 40 MG/0.4 ML SYG SC (09:21)
[2018-07-21 09:45] LABS: AADO2 Arterial 133.8 mmHg (7.0-24.0); Arterial Base Excess 13.4 mmol/L (-3.0-3); Arterial Blood Gas Oxygen Sat 95.8 mmHG (95.0-100.0); Arterial COHb 0.3 % (0.0-3.0); Arterial Fraction of Oxyhgb 95.1 % (93.0-99.0); Arterial HCO3 40.6 mmol/L (22.0-26.0); Arterial MetHb 0.4 % (0.0-1.5); Arterial pCO2 64.1 mmhg (35-45); Blood Gas IEPAP 18/5; Blood Gas PS 13; MODE MASK - BIPAP; Site Right Brachial
[2018-07-21] MEDS: FUROSEMIDE 40 MG INJ IV (11:31)
[2018-07-21] MEDS: MAGNESIUM SULFATE 2 GM/50 ML 50 ML IVPB (15:25)
[2018-07-21 15:27] LABS: AADO2 Arterial 72.5 mmHg (7.0-24.0); Arterial Base Excess 15.7 mmol/L (-3.0-3); Arterial Blood Gas Oxygen Sat 91.7 mmHG (95.0-100.0); Arterial COHb 0.8 % (0.0-3.0); Arterial Fraction of Oxyhgb 90.8 % (93.0-99.0); Arterial HCO3 43.6 mmol/L (22.0-26.0); Arterial MetHb 0.2 % (0.0-1.5); Arterial pCO2 68.1 mmhg (35-45); MODE NASAL CANNULA; Site Right Brachial
[2018-07-21] MEDS: CEFTRIAXONE 1 GM/50 ML (PMX) 50 ML IVPB (15:34)
[2018-07-21] MEDS: SUCRALFATE 1 GM TAB PO (20:09)
[2018-07-21] MEDS: INSULIN GLARGINE [LANTus] (100 UNITS/ML) SYG SC (21:49)
[2018-07-22] MEDS: INSULIN ASPART [NOVOLOG] 3 ML PEN SC ×3 (01:00→09:00)
[2018-07-22] MEDS: METOPROLOL 5 MG INJ IV (02:40)
[2018-07-22] MEDS: PANTOPRAZOLE (EC) 40 MG TAB PO (06:28)
[2018-07-22 07:14] LABS: MAGNESIUM 2.1 mg/dl (1.7-2.5)
[2018-07-22 07:15] LABS: BLOOD UREA NITROGEN 13 mg/dl (7-20); CALCIUM 8.7 mg/dl (8.4-10.2); CHLORIDE 92 mmol/L (97-110); GLUCOSE 68 mg/dl (70-220); POTASSIUM 3.7 mmol/L (3.5-5.1); SODIUM 141 mmol/L (135-144)
[2018-07-22 07:38] LABS: ANION GAP 4 (5-13); CARBON DIOXIDE 45 mmol/L (21-31)
[2018-07-22] MEDS: SUCRALFATE 1 GM TAB PO ×3 (09:00→20:46)
[2018-07-22] MEDS: ASPIRIN (EC) 81 MG TAB PO ×2 (09:00→12:12)
[2018-07-22] MEDS: ENOXAPARIN 40 MG/0.4 ML SYG SC (09:54)
[2018-07-22] MEDS: hydrALAzine 20 MG INJ IV (12:13)
[2018-07-22] MEDS: MAGNESIUM HYDROXIDE 30ML CUP PO (13:38)
[2018-07-22] MEDS: LORAZEPAM 2 MG INJ IV (13:47)
[2018-07-22] MEDS: ALBUTEROL/IPRATROPIUM (NEB) 3 ML AMP HHN (13:57)
[2018-07-22] MEDS ORDERED: INSULIN ASPART [NOVOLOG] 3 ML PEN SC (17:30)
[2018-07-22] MEDS: Insulin NOVOLOG SS MODERATE Algorithm (SS with meals and bedtime) SC ×2 (18:00→21:04)
[2018-07-22] MEDS: SENNA TAB PO (18:05)
[2018-07-22] MEDS: DOCUSATE SODIUM 100 MG CAP PO (20:46)
[2018-07-22] MEDS: INSULIN GLARGINE [LANTus] (100 UNITS/ML) SYG SC (21:04)
[2018-07-23] MEDS: LANSOPRAZOLE 30 MG CAP PO (05:46)
[2018-07-23 06:43] LABS: BLOOD UREA NITROGEN 15 mg/dl (7-20); CALCIUM 8.6 mg/dl (8.4-10.2); CHLORIDE 92 mmol/L (97-110); CREATININE 0.44 mg/dl (0.44-1.00); GLUCOSE 93 mg/dl (70-220); POTASSIUM 3.6 mmol/L (3.5-5.1); SODIUM 140 mmol/L (135-144)
[2018-07-23 07:00] LABS: ANION GAP 0 (5-13)
[2018-07-23 07:02] LABS: CARBON DIOXIDE 48 mmol/L (21-31)
[2018-07-23] MEDS: Insulin NOVOLOG SS MODERATE Algorithm (SS with meals and bedtime) SC ×4 (08:20→22:18)
[2018-07-23 08:38] LABS: AADO2 Arterial 106.1 mmHg (7.0-24.0); Allen Test ACCEPTAB; Arterial Base Excess 15.7 mmol/L (-3.0-3); Arterial Blood Gas Oxygen Sat 88.5 mmHG (95.0-100.0); Arterial COHb 0.7 % (0.0-3.0); Arterial Fraction of Oxyhgb 87.7 % (93.0-99.0); Arterial HCO3 43.1 mmol/L (22.0-26.0); Arterial MetHb 0.2 % (0.0-1.5); Arterial pCO2 64.7 mmhg (35-45); MODE NASAL CANNULA; Site Right Radial
[2018-07-23] MEDS: FUROSEMIDE 40 MG INJ IV (09:14)
[2018-07-23] MEDS: morphine 2 MG INJ IV (09:21)
[2018-07-23] MEDS: ENOXAPARIN 40 MG/0.4 ML SYG SC (09:29)
[2018-07-23] MEDS: DOCUSATE SODIUM 100 MG CAP PO ×2 (09:31→22:36)
[2018-07-23] MEDS: SUCRALFATE 1 GM TAB PO ×3 (09:31→22:36)
[2018-07-23] MEDS: ASPIRIN (EC) 81 MG TAB PO (09:31)
[2018-07-23] MEDS: INSULIN GLARGINE [LANTus] (100 UNITS/ML) SYG SC (22:20)
[2018-07-24] MEDS: LANSOPRAZOLE 30 MG CAP PO (05:36)
[2018-07-24 06:07] LABS: ADD MAN DIFF? NO
[2018-07-24 06:20] LABS: BASOPHIL # 0.1 10^3/ul (0.0-0.1); BASOPHILS % 0.7 % (0.0-2.0); EOSINOPHILS # 0.7 10^3/ul (0.0-0.5); HEMOGLOBIN 12.2 g/dl (12.0-16.0); LYMPHOCYTES # 3.5 10^3/ul (0.8-2.9); LYMPHOCYTES % 32.8 % (15.0-51.0); MEAN CORPUSCULAR HEMOGLOBIN 29.5 pg (29.0-33.0); MEAN CORPUSCULAR HGB CONC 30.5 g/dl (32.0-37.0); MEAN CORPUSCULAR VOLUME 96.6 fl (82.0-101.0); MEAN PLATELET VOLUME 12.7 fl (7.4-10.4); MONOCYTE # 0.7 10^3/ul (0.3-0.9); MONOCYTES % 6.3 % (0.0-11.0); NEUTROPHIL # 5.8 10^3/ul (1.6-7.5); NEUTROPHILS % 53.9 % (39.0-77.0); PLATELET COUNT 205 10^3/UL (140-415); RED BLOOD COUNT 4.14 10^6/ul (4.20-5.40); RED CELL DISTRIBUTION WIDTH 15.9 % (11.5-14.5)
[2018-07-24 06:20] LABS: WHITE BLOOD COUNT 10.8 10^3/ul (4.8-10.8)
[2018-07-24 06:52] LABS: PHOSPHORUS 3.1 mg/dl (2.5-4.9)
[2018-07-24 06:58] LABS: BLOOD UREA NITROGEN 13 mg/dl (7-20); CALCIUM 8.3 mg/dl (8.4-10.2); CHLORIDE 91 mmol/L (97-110); CREATININE 0.41 mg/dl (0.44-1.00); GLUCOSE 132 mg/dl (70-220); POTASSIUM 3.9 mmol/L (3.5-5.1); SODIUM 141 mmol/L (135-144)
[2018-07-24 07:25] LABS: ANION GAP 3 (5-13); CARBON DIOXIDE 47 mmol/L (21-31)
[2018-07-24] MEDS: Insulin NOVOLOG SS MODERATE Algorithm (SS with meals and bedtime) SC ×4 (08:00→20:43)
[2018-07-24] MEDS: SUCRALFATE 1 GM TAB PO ×3 (08:54→20:35)
[2018-07-24] MEDS: ASPIRIN (EC) 81 MG TAB PO (08:54)
[2018-07-24] MEDS: DOCUSATE SODIUM 100 MG CAP PO ×2 (08:54→20:35)
[2018-07-24] MEDS: hydrALAzine 20 MG INJ IV (19:49)
[2018-07-24] MEDS: BALSAM PERU/CASTOR OIL 60 GM TUBE TOP (20:36)
[2018-07-24] MEDS: INSULIN GLARGINE [LANTus] (100 UNITS/ML) SYG SC (20:58)
[2018-07-24] MEDS: LORAZEPAM 2 MG INJ IV (22:21)
[2018-07-24] MEDS: ALBUTEROL/IPRATROPIUM (NEB) 3 ML AMP HHN (23:04)
[2018-07-25] MEDS: LANSOPRAZOLE 30 MG CAP PO (05:46)
[2018-07-25 06:00] LABS: ADD MAN DIFF? NO
[2018-07-25 06:06] LABS: WHITE BLOOD COUNT 11.5 10^3/ul (4.8-10.8)
[2018-07-25 06:06] LABS: BASOPHIL # 0.1 10^3/ul (0.0-0.1); BASOPHILS % 0.5 % (0.0-2.0); EOSINOPHILS # 0.5 10^3/ul (0.0-0.5); EOSINOPHILS % 4.1 % (0.0-7.0); HEMATOCRIT 40.4 % (37.0-47.0); HEMOGLOBIN 12.5 g/dl (12.0-16.0); LYMPHOCYTES % 26.2 % (15.0-51.0); MEAN CORPUSCULAR HEMOGLOBIN 29.5 pg (29.0-33.0); MEAN CORPUSCULAR HGB CONC 30.9 g/dl (32.0-37.0); MEAN CORPUSCULAR VOLUME 95.3 fl (82.0-101.0); MEAN PLATELET VOLUME 12.4 fl (7.4-10.4); MONOCYTE # 0.7 10^3/ul (0.3-0.9); MONOCYTES % 5.9 % (0.0-11.0); NEUTROPHIL # 7.2 10^3/ul (1.6-7.5); PLATELET COUNT 185 10^3/UL (140-415); RED BLOOD COUNT 4.24 10^6/ul (4.20-5.40); RED CELL DISTRIBUTION WIDTH 16.1 % (11.5-14.5)
[2018-07-25 06:37] LABS: BLOOD UREA NITROGEN 12 mg/dl (7-20); CALCIUM 8.5 mg/dl (8.4-10.2); CHLORIDE 91 mmol/L (97-110); CREATININE 0.37 mg/dl (0.44-1.00); GLUCOSE 105 mg/dl (70-220); POTASSIUM 3.6 mmol/L (3.5-5.1); SODIUM 140 mmol/L (135-144)
[2018-07-25 06:42] LABS: PHOSPHORUS 3.5 mg/dl (2.5-4.9)
[2018-07-25 06:50] LABS: ANION GAP 3 (5-13); CARBON DIOXIDE 46 mmol/L (21-31)
[2018-07-25] MEDS: Insulin NOVOLOG SS MODERATE Algorithm (SS with meals and bedtime) SC ×4 (08:00→21:30)
[2018-07-25] MEDS: ASPIRIN (EC) 81 MG TAB PO (09:10)
[2018-07-25] MEDS: SUCRALFATE 1 GM TAB PO ×3 (09:10→21:25)
[2018-07-25] MEDS: DOCUSATE SODIUM 100 MG CAP PO ×2 (09:10→21:25)
[2018-07-25] MEDS: BALSAM PERU/CASTOR OIL 60 GM TUBE TOP ×2 (09:11→21:41)
[2018-07-25] MEDS: INSULIN GLARGINE [LANTus] (100 UNITS/ML) SYG SC (21:28)
[2018-07-25] MEDS: LORAZEPAM 2 MG INJ IV (21:38)
[2018-07-25] MEDS: NACL 0.9% 3 ML SYG IV (21:40)
[2018-07-25] MEDS: ACCU-CHEK XX (22:00)
[2018-07-25] MEDS: INSULIN ASPART [NOVOLOG] 3 ML PEN SC (22:22)
[2018-07-26] MEDS: LANSOPRAZOLE 30 MG CAP PO (05:58)
[2018-07-26 06:30] LABS: ADD MAN DIFF? NO
[2018-07-26 06:39] LABS: WHITE BLOOD COUNT 10.7 10^3/ul (4.8-10.8)
[2018-07-26 06:39] LABS: BASOPHIL # 0.1 10^3/ul (0.0-0.1); BASOPHILS % 0.6 % (0.0-2.0); EOSINOPHILS # 0.8 10^3/ul (0.0-0.5); EOSINOPHILS % 7.9 % (0.0-7.0); HEMATOCRIT 39.4 % (37.0-47.0); HEMOGLOBIN 12.1 g/dl (12.0-16.0); LYMPHOCYTES # 3.1 10^3/ul (0.8-2.9); LYMPHOCYTES % 28.8 % (15.0-51.0); MEAN CORPUSCULAR HEMOGLOBIN 29.2 pg (29.0-33.0); MEAN CORPUSCULAR HGB CONC 30.7 g/dl (32.0-37.0); MEAN CORPUSCULAR VOLUME 95.2 fl (82.0-101.0); MEAN PLATELET VOLUME 12.1 fl (7.4-10.4); MONOCYTE # 0.7 10^3/ul (0.3-0.9); MONOCYTES % 6.5 % (0.0-11.0); PLATELET COUNT 193 10^3/UL (140-415); RED BLOOD COUNT 4.14 10^6/ul (4.20-5.40)
[2018-07-26 07:05] LABS: PHOSPHORUS 3.9 mg/dl (2.5-4.9)
[2018-07-26 07:08] LABS: BLOOD UREA NITROGEN 13 mg/dl (7-20); CALCIUM 8.6 mg/dl (8.4-10.2); CHLORIDE 93 mmol/L (97-110); GLUCOSE 62 mg/dl (70-220); SODIUM 138 mmol/L (135-144)
[2018-07-26 07:45] LABS: ANION GAP 4 (5-13)
[2018-07-26 07:46] LABS: CARBON DIOXIDE 41 mmol/L (21-31)
[2018-07-26] MEDS: SUCRALFATE 1 GM TAB PO ×3 (08:35→21:00)
[2018-07-26] MEDS: DOCUSATE SODIUM 100 MG CAP PO ×2 (08:35→21:09)
[2018-07-26] MEDS: ASPIRIN (EC) 81 MG TAB PO (08:35)
[2018-07-26] MEDS: ENOXAPARIN 30 MG/0.3 ML SYG SC (08:38)
[2018-07-26] MEDS: Insulin NOVOLOG SS MODERATE Algorithm (SS with meals and bedtime) SC ×5 (08:39→21:05)
[2018-07-26] MEDS: BALSAM PERU/CASTOR OIL 60 GM TUBE TOP ×3 (09:00→21:08)
[2018-07-26] MEDS: ALBUTEROL/IPRATROPIUM (NEB) 3 ML AMP HHN ×2 (12:55→20:08)
[2018-07-26] MEDS: FUROSEMIDE 20 MG INJ IV (14:31)
[2018-07-26] MEDS: LORAZEPAM 2 MG INJ IV (15:24)
[2018-07-26] MEDS: INSULIN GLARGINE [LANTus] (100 UNITS/ML) SYG SC (21:06)
[2018-07-26] MEDS: BETAMETHASONE/CLOTRIMAZOLE 15 GM CR TOP (21:06)
[2018-07-27] MEDS: LANSOPRAZOLE 30 MG CAP PO (05:43)
[2018-07-27 06:02] LABS: ADD MAN DIFF? NO
[2018-07-27 06:07] LABS: WHITE BLOOD COUNT 10.9 10^3/ul (4.8-10.8)
[2018-07-27 06:08] LABS: BASOPHIL # 0.1 10^3/ul (0.0-0.1); BASOPHILS % 0.7 % (0.0-2.0); EOSINOPHILS # 0.7 10^3/ul (0.0-0.5); EOSINOPHILS % 6.2 % (0.0-7.0); HEMATOCRIT 39.7 % (37.0-47.0); LYMPHOCYTES # 3.4 10^3/ul (0.8-2.9); LYMPHOCYTES % 31.6 % (15.0-51.0); MEAN CORPUSCULAR HEMOGLOBIN 28.8 pg (29.0-33.0); MEAN CORPUSCULAR HGB CONC 30.2 g/dl (32.0-37.0); MEAN CORPUSCULAR VOLUME 95.2 fl (82.0-101.0); MEAN PLATELET VOLUME 12.4 fl (7.4-10.4); MONOCYTE # 0.7 10^3/ul (0.3-0.9); MONOCYTES % 6.8 % (0.0-11.0); NEUTROPHIL # 5.9 10^3/ul (1.6-7.5); NEUTROPHILS % 54.4 % (39.0-77.0); PLATELET COUNT 194 10^3/UL (140-415); RED BLOOD COUNT 4.17 10^6/ul (4.20-5.40); RED CELL DISTRIBUTION WIDTH 16.1 % (11.5-14.5)
[2018-07-27 06:17] LABS: PHOSPHORUS 3.6 mg/dl (2.5-4.9)
[2018-07-27 06:17] LABS: BLOOD UREA NITROGEN 9 mg/dl (7-20); CALCIUM 8.4 mg/dl (8.4-10.2); CHLORIDE 92 mmol/L (97-110); GLUCOSE 150 mg/dl (70-220); MAGNESIUM 1.9 mg/dl (1.7-2.5); POTASSIUM 4.1 mmol/L (3.5-5.1); SODIUM 139 mmol/L (135-144)
[2018-07-27 06:26] LABS: ANION GAP 3 (5-13); CARBON DIOXIDE 44 mmol/L (21-31)
[2018-07-27] MEDS: Insulin NOVOLOG SS MODERATE Algorithm (SS with meals and bedtime) SC ×2 (08:00→12:39)
[2018-07-27] MEDS: SUCRALFATE 1 GM TAB PO ×2 (08:45→12:46)
[2018-07-27] MEDS: DOCUSATE SODIUM 100 MG CAP PO (08:45)
[2018-07-27] MEDS: ASPIRIN (EC) 81 MG TAB PO (08:45)
[2018-07-27] MEDS: BETAMETHASONE/CLOTRIMAZOLE 15 GM CR TOP (08:48)
[2018-07-27] MEDS: BALSAM PERU/CASTOR OIL 60 GM TUBE TOP (08:48)
[2018-07-27] MEDS: ENOXAPARIN 30 MG/0.3 ML SYG SC (08:48)
[2018-07-27] MEDS ORDERED: ACETAMINOPHEN 650 MG SUPP PR (13:30)
[2018-07-27] MEDS ORDERED: ATROPINE 1% 5 ML OPH SL (13:30)
[2018-07-27] MEDS ORDERED: BISACODYL 10 MG SUPP PR (13:30)
[2018-07-27] MEDS ORDERED: ONDANSETRON 4 MG INJ IV (13:30)
[2018-07-27] MEDS: LORAZEPAM 2 MG INJ IV (22:50)
[2018-07-28] MEDS: LORAZEPAM 2 MG INJ IV (12:23)
[2018-07-29] MEDS: morphine 2 MG INJ IV ×3 (09:10→22:45)
[2018-07-29] MEDS: hydrALAzine 20 MG INJ IV (20:11)
[2018-07-29] MEDS: ALBUTEROL/IPRATROPIUM (NEB) 3 ML AMP HHN (20:50)
[2018-07-29] MEDS: LORAZEPAM 2 MG INJ IV (21:07)
[2018-07-29] MEDS: DOCUSATE SODIUM 100 MG CAP PO (22:00)
[2018-07-29] MEDS ORDERED: hydrALAzine 20 MG INJ IV (22:00)
[2018-07-29] MEDS: Insulin NOVOLOG SS MODERATE Algorithm (SS with meals and bedtime) SC (22:27)
[2018-07-29] MEDS: INSULIN ASPART [NOVOLOG] 3 ML PEN SC (22:40)
[2018-07-30] MEDS: ACCUCHECK AT 2AM (Patients on SS coverage) XX (02:00)
[2018-07-30] MEDS: LORAZEPAM 2 MG INJ IV ×2 (03:11→09:43)
[2018-07-30] MEDS: morphine 2 MG INJ IV ×5 (06:07→23:36)
[2018-07-30] MEDS: AMLODIPINE 5 MG TAB PO (08:36)
[2018-07-30] MEDS: DOCUSATE SODIUM 100 MG CAP PO ×2 (08:36→21:00)
[2018-07-30] MEDS: Insulin NOVOLOG SS MODERATE Algorithm (SS with meals and bedtime) SC ×2 (08:41→12:40)
[2018-07-30] MEDS: ALBUTEROL/IPRATROPIUM (NEB) 3 ML AMP HHN (09:59)
[2018-07-30] MEDS: INSULIN ASPART [NOVOLOG] 3 ML PEN SC ×3 (17:41→21:38)
[2018-07-30] MEDS: ACCU-CHEK XX (21:34)
[2018-07-30] MEDS ORDERED: GLUCAGON 1 MG INJ IM (22:00)
[2018-07-30] MEDS ORDERED: GLUCOSE GEL 15 GRAM TUBE BUCCAL (22:00)
[2018-07-30] MEDS ORDERED: DEXTROSE 50% 50 ML SYRINGE IV ×2 (22:00)
[2018-07-30] MEDS ORDERED: GLUCOSE GEL 15 GRAM TUBE PO ×2 (22:00)
[2018-07-31] MEDS: ACCUCHECK AT 2AM (Patients on SS coverage) XX (02:00)
[2018-07-31] MEDS: morphine 2 MG INJ IV ×4 (05:25→20:59)
[2018-07-31] MEDS: DOCUSATE SODIUM 100 MG CAP PO ×2 (08:30→20:55)
[2018-07-31] MEDS: INSULIN ASPART [NOVOLOG] 3 ML PEN SC ×4 (08:30→21:02)
[2018-07-31] MEDS: AMLODIPINE 5 MG TAB PO (08:30)
[2018-07-31] MEDS: BALSAM PERU/CASTOR OIL 60 GM TUBE TOP ×2 (08:31→21:00)
[2018-07-31] MEDS: BETAMETHASONE/CLOTRIMAZOLE 15 GM CR TOP ×2 (08:31→21:00)
[2018-07-31] MEDS: LORAZEPAM 2 MG INJ IV (10:33)
[2018-07-31] MEDS: ALBUTEROL/IPRATROPIUM (NEB) 3 ML AMP HHN (20:12)
[2018-08-01] MEDS: morphine 2 MG INJ IV ×5 (01:00→13:37)
[2018-08-01] MEDS: ALBUTEROL/IPRATROPIUM (NEB) 3 ML AMP HHN ×6 (01:55→20:13)
[2018-08-01] MEDS: ACCUCHECK AT 2AM (Patients on SS coverage) XX (02:00)
[2018-08-01] MEDS: INSULIN ASPART [NOVOLOG] 3 ML PEN SC ×4 (08:00→20:59)
[2018-08-01] MEDS: LORAZEPAM 2 MG INJ IV ×3 (08:22→22:03)
[2018-08-01] MEDS: METOPROLOL (XL) 25 MG TAB PO (09:00)
[2018-08-01] MEDS: DOCUSATE SODIUM 100 MG CAP PO ×2 (09:00→21:02)
[2018-08-01] MEDS: BALSAM PERU/CASTOR OIL 60 GM TUBE TOP ×2 (13:36→21:00)
[2018-08-01] MEDS: BETAMETHASONE/CLOTRIMAZOLE 15 GM CR TOP ×2 (13:37→21:02)
[2018-08-01] MEDS: morphine (DRIP) 100 MG/100 ML 100 ML IV (17:13)
[2018-08-01] MEDS: INSULIN GLARGINE [LANTus] (100 UNITS/ML) SYG SC (23:16)
[2018-08-02] MEDS: ALBUTEROL/IPRATROPIUM (NEB) 3 ML AMP HHN ×4 (01:27→19:54)
[2018-08-02] MEDS: ACCUCHECK AT 2AM (Patients on SS coverage) XX (01:40)
[2018-08-02] MEDS: DOCUSATE SODIUM 100 MG CAP PO ×2 (09:00→20:54)
[2018-08-02] MEDS: METOPROLOL (XL) 25 MG TAB PO (09:00)
[2018-08-02] MEDS: BETAMETHASONE/CLOTRIMAZOLE 15 GM CR TOP ×2 (09:05→21:13)
[2018-08-02] MEDS: BALSAM PERU/CASTOR OIL 60 GM TUBE TOP ×2 (09:06→21:13)
[2018-08-02] MEDS: INSULIN ASPART [NOVOLOG] 3 ML PEN SC ×4 (09:20→21:00)
[2018-08-02] MEDS: LORAZEPAM 2 MG INJ IV ×2 (13:27→22:08)
[2018-08-02] MEDS: INSULIN GLARGINE [LANTus] (100 UNITS/ML) SYG SC (23:53)
[2018-08-03] MEDS: ALBUTEROL/IPRATROPIUM (NEB) 3 ML AMP HHN ×2 (01:18→07:37)
[2018-08-03] MEDS: ACCUCHECK AT 2AM (Patients on SS coverage) XX (01:41)
[2018-08-03] MEDS: LORAZEPAM 2 MG INJ IV ×3 (07:29→23:29)
[2018-08-03] MEDS: DOCUSATE SODIUM 100 MG CAP PO (08:42)
[2018-08-03] MEDS: METOPROLOL (XL) 25 MG TAB PO (08:42)
[2018-08-03] MEDS: BETAMETHASONE/CLOTRIMAZOLE 15 GM CR TOP ×2 (09:00→22:18)
[2018-08-03] MEDS: INSULIN ASPART [NOVOLOG] 3 ML PEN SC ×2 (09:00→12:40)
[2018-08-03] MEDS: BALSAM PERU/CASTOR OIL 60 GM TUBE TOP ×2 (09:01→22:18)
[2018-08-03] MEDS ORDERED: ALBUTEROL/IPRATROPIUM (NEB) 3 ML AMP HHN (13:00)
== END 2018-08-04 01:32 | disposition expired | DRG 871 ==
LOC: 6WM 07-21 02:50 → 2NE 07-23 01:23 → MS1 08-01 16:28 → E/R 22:08 → ICU 07-20 01:51
PROC: 5A09357 Assistance with Respiratory Ventilation, Less than 24 Consecutive Hours, Continuous Positive Airway Pressure (ICD-10-PCS; principal; 2018-07-19)
DX: A41.9 Sepsis, unspecified organism (principal); R65.21 Severe sepsis with septic shock; J96.22 Acute and chronic respiratory failure with hypercapnia; J96.21 Acute and chronic respiratory failure with hypoxia; N39.0 Urinary tract infection, site not specified; J81.1 Chronic pulmonary edema; R04.2 Hemoptysis; I48.91 Unspecified atrial fibrillation; Z66 Do not resuscitate; D64.9 Anemia, unspecified; E11.9 Type 2 diabetes mellitus without complications; F41.9 Anxiety disorder, unspecified; I10 Essential (primary) hypertension; J84.112 Idiopathic pulmonary fibrosis; L89.312 Pressure ulcer of right buttock, stage 2; I95.2 Hypotension due to drugs; T50.2X5A Adverse effect of carbonic-anhydrase inhibitors, benzothiadiazides and other diuretics, initial encounter; R13.10 Dysphagia, unspecified; R53.81 Other malaise; R10.9 Unspecified abdominal pain; Z51.5 Encounter for palliative care; Z99.81 Dependence on supplemental oxygen; Z79.4 Long term (current) use of insulin; Z79.01 Long term (current) use of anticoagulants; Z79.82 Long term (current) use of aspirin
CPT/HCPCS: 36415; 36600; 71045; 80048; 80053; 80061; 81001; 82803; 82962; 83036; 83690; 83735; 83880; 84100; 84439; 84443; 84484; 85025; 87070; 87081; 87086; 92526; 92610; 93005; 94640; 94660; 94664; 96374; 96375; 97110; 97163; 97167; 99285-25